=== PATIENT | female | born 1945 ===

== ENCOUNTER 2018-02-27 08:38 | Day surgery (SDC) | payer MEDICARE ==
[~2018-02-27 08:38] MED LIST: TYLENOL ONE
[2018-02-27] MEDS ORDERED: ECOTRIN PO ONE (09:04)
[2018-02-27 09:46] LABS: Basophils % (Auto) 0.6 % (0.0-1.8); Eosinophils # (Auto) 0.1 K/mm3 (0.0-0.4); Eosinophils % (Auto) 1.1 % (0.0-4.3); Lymphocytes # (Auto) 1.3 K/mm3 (1.2-5.4); Lymphocytes % (Auto) 18.7 % (13.4-35.0); Mean Corpuscular HGB Conc 34 % (30-34); Mean Corpuscular Hemoglobin 33 pg (28-32); Mean Corpuscular Volume 97 fl (79-97); Monocytes # (Auto) 0.4 K/mm3 (0.0-0.8); Monocytes % (Auto) 6.3 % (0.0-7.3); Platelet Count 239 K/mm3 (140-440); Red Blood Count 4.56 M/mm3 (3.65-5.03); Red Cell Distribution Width 13.8 % (13.2-15.2)
[2018-02-27 09:57] LABS: INR 0.87 (0.87-1.13)
[2018-02-27 09:58] LABS: BUN/Creatinine Ratio 25; Blood Urea Nitrogen 20 mg/dL (7-17); Calcium 9.1 mg/dL (8.4-10.2); Hemolysis Index 33
[2018-02-27] MEDS ORDERED: NACL 0.9% 500 ML 500 ML IV SCH (10:00)
[2018-02-27] MEDS ORDERED: HEPARIN 10,000 UNITS/10 ML ONE (10:23)
[2018-02-27] MEDS ORDERED: HEPARIN/NS 5000 UNIT/500ML(CATH LAB) 1,000 ML IR ONE (10:23)
[2018-02-27] MEDS ORDERED: VERSED ONE (10:24)
[2018-02-27] MEDS ORDERED: XYLOCAINE 2% INFILTRATI ONE (10:24)
[2018-02-27] MEDS ORDERED: NITROGLYCERIN SYRINGE 0 ML ONE (10:24)
[2018-02-27] MEDS: SUBLIMAZE ONE ×2 (11:10→11:11)
--- NOTE | 2018-02-27 11:56 | Discharge Summary ---
Short Stay Discharge Plan Activity: advance as tolerated Weight Bearing Status: Partial Weight Bearing Diet: low fat, low cholesterol, low salt Wound: keep clean and dry Special Instructions: no heavy lifting (3 days) Follow up with: GULSHAN TSE MD [Primary Care Provider] - 7 Days RONAL NUNEZ MD [Staff Physician] - 7 Days
[2018-02-27] MEDS ORDERED: NACL 0.9% 1000 ML 1,000 ML IV SCH (12:00)
--- NOTE | 2018-02-27 13:14 | Cardiac Catherization Report ---
CARDIAC CATHETERIZATION REPORT REASON FOR PROCEDURE: A 73-year-old woman with progressive dyspnea on exertion. Despite a negative thallium stress test, the patient continues to complain of dyspnea, prompting a recommendation for a right and left heart catheterization. PROCEDURE: The patient was prepped and draped in a sterile fashion after informed consent. The right femoral artery and vein were both entered using the Seldinger technique, 6-Hungarian sheath was inserted into the artery and an 8-Hungarian sheath in the vein. Altmar-Carly catheterization was then performed and the pigtail catheter was placed into the left ventricle. Simultaneous right and left heart filling pressures were recorded. Thermodilution cardiac output was measured. The Altmar-Carly catheter was then withdrawn and additional right heart pressures were measured on pullback. Left ventricle angiography was then performed following which the pigtail catheter was withdrawn across the aortic valve, and transaortic gradient was recorded. Finally, selective left and right coronary angiography was performed using #4 right and left Swati catheters. The catheters were removed, sheath removed, hemostasis achieved using an Angio-Seal device in the arterial position and manual compression in the venous position. The patient was returned to the postprocedure unit in stable condition. There were no complications. FINDINGS: HEMODYNAMICS: The mean right atrial pressure was 20. Right ventricular pressure 60/20. Pulmonary artery pressure was 60/30. The mean pulmonary artery wedge pressure was 25. Left ventricle end diastolic pressure was 25-30. Ascending aortic pressure was 163/83. There was no significant pressure gradient on pullback across the aortic valve. Cardiac output was 4.8 liters per minute. Coronary Angiography: Left main coronary artery was free of significant disease. There was mild diffuse atherosclerosis of the left anterior descending artery and its diagonal branches. The circumflex artery and its obtuse marginal branches contained diffuse mild atherosclerosis. Right coronary artery was dominant and contained mild luminal irregularities. No significant obstructive lesions were noted in either left or right coronary artery. There was normal to hyperdynamic left ventricular systolic function with ejection fraction 60-65%. CONCLUSION: 1. Elevated right and left heart filling pressures, moderate to severe pulmonary hypertension with pulmonary artery systolic pressure of 60. 2. Mild diffuse luminal irregularities with no significant obstructive lesions noted. 3. Normal left ventricular systolic function, ejection fraction 60-65%. RECOMMENDATION: 1. Risk factor modification and medical therapy. 2. Pulmonary Medicine evaluation and management of COPD and pulmonary hypertension as likely etiology of the patient's chronic dyspnea. JOB# [id number] ARTURO/JAGDISH
[2018-02-27 16:17] VITALS: BP 126/71
== END 2018-02-27 08:39 | disposition home or self-care (01) ==
LOC: CATHLABREC 08:38
PROVIDERS: ATTEND Internal Medicine Cardiovascular Disease
DX: I25.10 Atherosclerotic heart disease of native coronary artery without angina pectoris (principal); I11.0 Hypertensive heart disease with heart failure; I50.32 Chronic diastolic (congestive) heart failure
CPT/HCPCS: 36415; 80048; 85025; 85610; 93005; 93010; 93460; 99156; 99157; C1760; C1894; J1644; J2250; J3010; J7040; Q9967